=== PATIENT | female | born 1985 | race African-American/Black ===

== ENCOUNTER 2017-10-03 00:32 | Emergency (ER) | payer SELFPAY ==
--- NOTE | 2017-10-03 02:15 | EDM.PDOC ---
ED HPI GENERAL MEDICAL PROBLEM - General Chief Complaint: Lower Extremity Injury/Pain Stated Complaint: POSS INSECT BITE ON LEFT LEG Time Seen by Provider: 10/03/17 02:12 Source of Information: Reports: Patient - History of Present Illness INITIAL COMMENTS - FREE TEXT/NARRATIVE: HISTORY AND PHYSICAL: History of present illness: []Patient presents after rolling her left ankle she complains of 5 out of 10 pain with ambulation she also has an insect bite near the ankle some mild redness is may be associated with rolling the ankle as well no fever nausea vomiting chills sweats Review of systems: As per history of present illness and below otherwise all systems reviewed and negative. Past medical history: As per history of present illness and as reviewed below otherwise noncontributory. Surgical history: As per history of present illness and as reviewed below otherwise noncontributory. Social history: No reported history of drug or alcohol abuse. Family history: As per history of present illness and as reviewed below otherwise noncontributory. Physical exam: HEENT: Atraumatic, normocephalic, pupils reactive, negative for conjunctival pallor or scleral icterus, mucous membranes moist, throat clear, neck supple, nontender, trachea midline. Lungs: Clear to auscultation, breath sounds equal bilaterally, chest nontender. Heart: S1S2, regular, negative for clicks, rubs, or JVD. Abdomen: Soft, nondistended, nontender. Negative for masses or hepatosplenomegaly. Negative for costovertebral tenderness. Pelvis: Stable nontender. Genitourinary: Deferred. Rectal: Deferred. Extremities: Atraumatic, negative for cords or calf pain. Neurovascular unremarkable. Neuro: Awake, alert, oriented. Cranial nerves II through XII unremarkable. Cerebellum unremarkable. Motor and sensory unremarkable throughout. Exam nonfocal. Diagnostics: []Ankle 3 views Therapeutics: [] Keflex 500 mg by mouth T twice a day #20 no refill air splint crutches nonweightbearing Impression: [ left ankle injury Insect bite ] Definitive disposition and diagnosis as appropriate pending reevaluation and review of above. left ankle Pain Score (Numeric/FACES): 7 - Related Data Allergies Allergy/AdvReac Type Severity Reaction Status Date / Time No Known Allergies Allergy Verified 10/03/17 00:52 Home Meds: Home Meds . [No Known Home Meds] 10/03/17 [History] Past Medical History HEENT History: Reports: None Cardiovascular History: Reports: None Respiratory History: Reports: None Gastrointestinal History: Reports: None Genitourinary History: Reports: None INFERTILITY NURSE History: Reports: None Musculoskeletal History: Reports: None Neurological History: Reports: None Psychiatric History: Reports: None Endocrine/Metabolic History: Reports: None Hematologic History: Reports: None Immunologic History: Reports: None Oncologic (Cancer) History: Reports: None Dermatologic History: Reports: None - Infectious Disease History Infectious Disease History: Reports: None - Past Surgical History Head Surgeries/Procedures: Reports: None Social & Family History - Family History Family Medical History: Noncontributory - Tobacco Use Smoking Status *Q: Current Every Day Smoker Years of Tobacco use: 20 Packs/Tins Daily: 2 - Caffeine Use Caffeine Use: Reports: Coffee - Recreational Drug Use Recreational Drug Use: No Review of Systems - Review of Systems Review Of Systems: See Below ED EXAM, GENERAL - Physical Exam Exam: See Below Course - Vital Signs Last Recorded V/S: Last Vital Signs Temp 97.6 F 10/03/17 00:42 Pulse 89 10/03/17 00:42 Resp 18 10/03/17 00:42 BP 128/81 10/03/17 00:42 Pulse Ox 100 10/03/17 00:42 - Orders/Labs/Meds Orders: Active Orders 24 hr Category Date Time Status Ankle Min 3V Lt [CR] Stat Exams 10/03/17 01:10 Taken Departure - Departure Time of Disposition: 02:13 Disposition: Home, Self-Care 01 Condition: Good Clinical Impression: Ankle injury - Discharge Information Referrals: PCP,None [Primary Care Provider] - Additional Instructions: Medication as prescribed Return if symptoms persist or worsen Air splint Crutches/nonweightbeAll up with primary care or orthopedist in 2 weeks sooner as needed [facility] - [facility] [address] [place] [id number] [facility] - [facility]opedic Clinic Professional Building [address] [place] [address], [address] [place] [address] my orthopedic The following information is given to patients seen in the emergency department who are being discharged to home. This information is to outline your options for follow-up care. We provide all patients seen in our emergency department with a follow-up referral. The need for follow-up, as well as the timing and circumstances, are variable depending upon the specifics of your emergency department visit. If you don't have a primary care physician on staff, we will provide you with a referral. We always advise you to contact your personal physician following an emergency department visit to inform them of the circumstance of the visit and for follow-up with them and/or the need for any referrals to a consulting specialist. The emergency department will also refer you to a specialist when appropriate. This referral assures that you have the opportunity for follow-up care with a specialist. All of these measure are taken in an effort to provide you with optimal care, which includes your follow-up. Under all circumstances we always encourage you to contact your private physician who remains a resource for coordinating your care. When calling for follow-up care, please make the office aware that this follow-up is from your recent emergency room visit. If for any reason you are refused follow-up, please contact the [facility] emergency department at and asked to speak to the emergency department charge nurse. - My Orders Last 24 Hours: My Active Orders 10/03/17 01:10 Ankle Min 3V Lt [CR] Stat - Assessment/Plan Last 24 Hours: My Active Orders 10/03/17 01:10 Ankle Min 3V Lt [CR] Stat
--- NOTE | 2017-10-04 13:36 | CR ---
EXAM DATE: 10/03/17 PATIENT'S AGE: 31 Patient: JAIME GORDON Facility: [place], [place] Site . Site : 1985 Study: XRay Extremity Left [id number]/19/2018 1:49:21 AM Ordering Physician: Claudy Azevedo Final Report: Indication: Pain Technique: Three views of the left ankle were obtained. Comparison: None Findings: The ankle mortise is intact. The talar dome is intact. No acute fracture or subluxation is identified. Soft tissue swelling is identified laterally. Impression: Soft tissue swelling laterally. No acute fracture. Dictated by Bernadine Cheng MD @ Oct 03 2017 1:56AM (Electronic Signature) Report Signed by Proxy. [facility] HOSPITALShaneka
== END 2017-10-03 02:43 | disposition home or self-care (01) ==
LOC: MW.ED 00:32
DX: S90.562A Insect bite (nonvenomous), left ankle, initial encounter (principal); W57.XXXA Bitten or stung by nonvenomous insect and other nonvenomous arthropods, initial encounter; F17.210 Nicotine dependence, cigarettes, uncomplicated
CPT/HCPCS: 73610-26-LT; 73610-LT; 99282